=== PATIENT | female | born 1990 | race American Indian/Alaskan Native ===

== ENCOUNTER 2017-01-03 08:14 | Outpatient (CLI) | payer BC, OTHER ==
--- NOTE | 2017-01-04 11:34 | Nuclear Medicine Report ---
NUCLEAR MEDICINE THYROID UPTAKE MULTIPLE History: Hyperthyroidism. Findings: Scintigraphic images of the thyroid bed demonstrates homogeneous uptake of the radiotracer throughout both lobes. No hot or cold nodule. 4 hour uptake measures 81.8%. Normal range 4-18%. 24 hour uptake measures 80.4%. Normal range 18-36%. Impression: Markedly elevated 4 and 24-hour uptake values as described. No focal thyroid lesion is appreciated.
== END 2017-01-03 08:15 | disposition home or self-care (01) ==
LOC: NM 08:14
PROVIDERS: ATTEND Specialist
DX: E05.00 Thyrotoxicosis with diffuse goiter without thyrotoxic crisis or storm (principal)
CPT/HCPCS: 78012; A9516